=== PATIENT | female | born 1935 | race Caucasian/White ===

== ENCOUNTER 2021-04-23 00:49 | Inpatient (IN) | payer OTHER ==
[~2021-04-23] VITALS: Ht 167.6 cm; Wt 78.9 kg
[2021-04-23 00:51] VITALS: BP 130/84
[2021-04-23] MEDS ORDERED: TYLENOL325 M1 PO (00:51)
[2021-04-23] MEDS ORDERED: ALLOPURINOL 10100 M3 PO (00:51)
[2021-04-23] MEDS ORDERED: NORVASC10 MG PO (00:52)
[2021-04-23] MEDS ORDERED: VITAMIN B-121000 MC2 SUBLING (00:52)
[2021-04-23] MEDS ORDERED: PULMICORT0.5 MG/21 INH (00:52)
[2021-04-23] MEDS ORDERED: LISINOPRIL20 MG PO (00:53)
[2021-04-23] MEDS ORDERED: ENOXAPARIN40 MG/0.1 SUBQ (00:53)
[2021-04-23] MEDS ORDERED: LEVO-T100 MCG PO (00:53)
[2021-04-23] MEDS ORDERED: MAGNESIUM250 M1 PO (00:54)
[2021-04-23] MEDS ORDERED: TOPROL XL25 MG PO (00:54)
[2021-04-23] MEDS ORDERED: SENNA8.8 MG/5 M PO (00:55)
[2021-04-23] MEDS ORDERED: PROTONIX40 M2 PO (00:55)
[2021-04-23] MEDS ORDERED: VENTOLIN HFA 1818 GM INH (00:55)
[2021-04-23 01:53] LABS: ABSOLUTE BASOPHILS 0.1 thou/uL (0.0-0.2); ABSOLUTE EOSINOPHILS 0.3 thou/uL (0.0-0.7); ABSOLUTE LYMPHOCYTES 1.3 thou/uL (0.8-5.3); ABSOLUTE MONOCYTES 0.9 thou/uL (0.0-1.2); ABSOLUTE NEUTROPHILS 8.4 thou/uL (1.6-8.1); BASOPHILS 0.6 %; EOSINOPHILS 2.3 %; HEMATOCRIT 25.1 % (37.0-47.0); HEMOGLOBIN 8.6 gm/dL (12.0-15.0); LYMPHOCYTES 12.1 %; MCH 31.9 pg (26.0-34.0); MCHC 34.1 g/dL (28.0-37.0); MCV 93.5 fL (80.0-100.0); MONOCYTES 8.5 %; MPV 5.9 fl. (7.2-11.1); NUCLEATED RBCS 0 /100WBC; PLATELET COUNT* 413 thou/uL (150-400); POLYS 76.5 %; RBC 2.69 mil/uL (4.20-5.00); RDW-CV 15.7 % (10.5-14.5)
[2021-04-23 02:00] LABS: CALCIUM 9.6 mg/dL (8.5-10.1); CREATININE 1.3 mg/dL (0.6-1.3); POTASSIUM 4.5 mmol/L (3.5-5.1)
[2021-04-23 02:05] LABS: ALBUMIN 2.7 g/dL (3.4-5.0); TOTAL BILIRUBIN 0.6 mg/dL (<0.1-1.0)
[2021-04-23 03:36] LABS: URINE BILIRUBIN NEGATIVE (Negative); URINE BLOOD 1+ (Negative); URINE CLARITY SL CLOUDY; URINE COLOR YELLOW; URINE GLUCOSE-RANDOM NEGATIVE (Negative); URINE KETONES NEGATIVE (Negative); URINE PROTEIN 1+ (Negative); URINE UROBILINOGEN 0.2 E.U./dl (0.2-1.0)
[2021-04-23 03:39] LABS: URINE LEUKOCYTES-REFLEX 3+ (Negative); URINE NITRITE-REFLEX POSITIVE (Negative)
[2021-04-23 03:43] LABS: SQUAMOUS 0-3 Few /LPF (0-3); URINE WBC-REFLEX >25 Many /HPF (0-5); WBC CLUMPS Few (None Seen)
[2021-04-23 03:44] LABS: BACTERIA-REFLEX >30 Many /HPF (None Seen); CASTS None Seen /LPF (None Seen); MUCUS 4-6 Moderate strn/LPF (None Seen)
[2021-04-23 03:46] LABS: TRIPLE PHOSPHATE CRYSTALS 0-3 Few /LPF (None Seen)
[2021-04-23 07:52] VITALS: BP 125/59
[2021-04-23 08:15] VITALS: BP 123/46
--- NOTE | 2021-04-23 10:59 | EKG ---
[place] [address] ELECTROCARDIOGRAM REPORT Name: MICBLAKE Carrillo Room: [address]R.#: [id number] Admission: 04/23/21 Attend Phys: George Peace, Discharge: Date of : [birth year] Date of Service: 04/23/21 0148 Report #: [id number] THIS REPORT FOR: //name// [facility] ED Test Date: 2021-04-23 Test Time: 01:48:56 Pat Name: BLAKE HAILE Department: Room: [facility] Gender: F Cook Starch: [place] : 1935 Requested By: Delilah Joy Order Number: [id number] MD: Edmundo Mathis Measurements Intervals [place] Rate: 81 P: 0 [place]: 63 QRS: -39 QRSD: 119 T: -5 QT: 405 QTc: 470 Interpretive Statements Sinus rhythm with PACs First-degree AV block Nonspecific IVCD with LAD Inferior infarct, old possible R wave progression V2 to V3 of uncertain cause No previous ECG available for comparison Electronically Signed On 04-23-2021 10:59:12 CDT by Edmundo Mathis [email or web address] <ELECTRONICALLY SIGNED> By: Edmundo Mathis MD, [facility] 04/23/21 1059 7 0148 Edmundo Mathis MD, [facility] /EPI
--- NOTE | 2021-04-23 13:25 | NUR ---
REFERRAL PACKET FAXED TO [facility] ([phone]) [facility] ([phone]) [facility] CONTACT LIAISON. AWAITING APPROVAL. CM LUIS MENARD TO FOLLOW FOR SAFE D/C PLANNING.
--- NOTE | 2021-04-23 15:09 | NUR ---
WOUND NURSE: PATIENT ADDRESSED REGARDING COCCYGEAL WOUND. PRESENTS A 0.8 X 0.8 X 0.2 CM LESION CONTAINING PALE YELLOWISH TISSUE IN THE WOUND BED AND MINIMAL AMOUNT OF SEROUUS DRAINAGE. CLEANSED WITH SOAP AND WATER, RINSED, THEN PATTED DRY. APPLIED SKIN PREP TO INTACT PERIWOUND TISSUE. APPLIED EXUDERM SATIN (CUT TO FIT) OVER THE WOUND BED, THEN SECURED IN PLACE USING SURESITE TRANSPARENT DRESSING. PATIENT WAS POSITIONED ONTO HER LEFT SIDE. PATIENT IS NOT TEACHEABLE.
[2021-04-23 16:00] VITALS: BP 121/55
--- NOTE | 2021-04-23 16:14 | NUR ---
PT VERBALIZING PAIN. DR. BROWN NOTIFIED. PT HAD A KNEE REPLACEMENT 2 WEEKS AGO. TELEPHONE ORDER FOR SLOAN 5/325 Q 4 HOURS FOR PAIN GIVEN BY DR. RBOWN.
--- NOTE | 2021-04-23 18:40 | NUR ---
PT RESTING IN BED AT THIS TIME. WOUND CARE NURSE IN TO SEE PATIENT. ASSUMED CARE OF PT AT 1500 TODAY. REPORT RECEIVED. PT RECEIVED PAIN MED X 1 FOR LEFT KNEE PAIN. CARLIN REMAIN IN PLACE. FALL PRECAUTIONS IN PLACE. POOR PO INTAKE FOR DINNER. WILL CONTINUE TO MONITOR.
[2021-04-23 20:30] VITALS: BP 146/51
--- NOTE | 2021-04-24 07:36 | NUR ---
PATIENT SLEPT MOST OF THE NIGHT. IV REMAINS SALINE LOCKED. PURWICK WAS PLACED FOR INCONTINENCE. PATIENT HAD NO COMPLAINTS OF PAIN. WILL CONTINUE TO MONITOR.
[2021-04-24 07:58] VITALS: BP 141/62
[2021-04-24 09:28] LABS: HEMATOCRIT 23.3 % (37.0-47.0); HEMOGLOBIN 8.1 gm/dL (12.0-15.0); MCH 32.4 pg (26.0-34.0); MCHC 34.9 g/dL (28.0-37.0); MCV 92.9 fL (80.0-100.0); MPV 6.3 fl. (7.2-11.1); RBC 2.51 mil/uL (4.20-5.00); RDW-CV 15.4 % (10.5-14.5); WBC 6.8 thou/uL (4.0-11.0)
[2021-04-24 09:33] LABS: CALCIUM 9.2 mg/dL (8.5-10.1); POTASSIUM 4.1 mmol/L (3.5-5.1)
[2021-04-24 16:10] VITALS: BP 143/61
--- NOTE | 2021-04-24 18:44 | NUR ---
PATIENT IS ORIENTED TO SELF, PLEASANT AND COOPERATIVE WITH CARES. PATIENT HAS SAT UP IN RECLINER MOST OF SHIFT AND HAS DENIED ANY PAIN UNTIL APPROX. 1800 WHEN SHE C/O LEFT KNEE AND BUTTOCK PAIN AFTER BEING ASSISTED BACK TO BED BY NURSING STAFF. PRN PAIN MEDICATION ADMINISTERED AND PATIENT IS CURRENTLY LYING IN BED WITH EYES CLOSED, APPEARS TO BE SLEEPING WITH RESPIRATIONS EVEN AND UNLABORED, NO DISTRESS NOTED. BED ALARM ON FOR PATIENT'S SAFETY; CALL LIGHT AND FREQUENTLY USED ITEMS WITHIN REACH.
[2021-04-24 21:30] VITALS: BP 126/64
--- NOTE | 2021-04-25 07:46 | NUR ---
PATIENT SLEPT MOST OF THE NIGHT. PATIENT HAD NO COMPLAINTS OF PAIN. DRESSING TO LEFT KNEE REMAINS INTACT. PURWICK REMAINS IN PLACE. WILL CONTINUE TO MONITOR.
[2021-04-25 08:20] VITALS: BP 158/56
[2021-04-25 08:27] LABS: HEMATOCRIT 23.2 % (37.0-47.0); HEMOGLOBIN 8.1 gm/dL (12.0-15.0); MCH 32.5 pg (26.0-34.0); MCHC 34.8 g/dL (28.0-37.0); MCV 93.2 fL (80.0-100.0); MPV 6.1 fl. (7.2-11.1); RBC 2.49 mil/uL (4.20-5.00); RDW-CV 15.7 % (10.5-14.5); WBC 5.3 thou/uL (4.0-11.0)
[2021-04-25 08:51] LABS: CALCIUM 9.3 mg/dL (8.5-10.1); CREATININE 0.9 mg/dL (0.6-1.3)
[2021-04-25 16:00] VITALS: BP 130/54
--- NOTE | 2021-04-25 17:01 | NUR ---
PT REMAINED ALERT AND ORIENTED. DRESSING CHANGED. HOME MEDS RESTARTED. FALL RISK PRECAUTIONS IN PLACE. HOURLY ROUNDING COMPLETED.
[2021-04-25 20:17] VITALS: BP 133/49
[2021-04-26 04:24] LABS: HEMATOCRIT 22.9 % (37.0-47.0); HEMOGLOBIN 7.9 gm/dL (12.0-15.0); MCH 32.3 pg (26.0-34.0); MCHC 34.7 g/dL (28.0-37.0); MCV 93.2 fL (80.0-100.0); MPV 6.4 fl. (7.2-11.1); RBC 2.46 mil/uL (4.20-5.00); RDW-CV 15.6 % (10.5-14.5); WBC 5.8 thou/uL (4.0-11.0)
[2021-04-26 04:34] LABS: CALCIUM 9.3 mg/dL (8.5-10.1); CREATININE 0.8 mg/dL (0.6-1.3)
--- NOTE | 2021-04-26 06:15 | NUR ---
PATIENT SLEPT MOST OF THE NIGHT. PATIENT HAD NO COMPLAINTS OF PAIN. PATIENT COULD POSSIBLY DC BACK TO [facility]. WILL CONTINUE TO MONITOR.
[2021-04-26 08:00] VITALS: BP 139/60
--- NOTE | 2021-04-26 14:03 | NUR ---
Insurance auth receive, planned dc back to [facility] tomorrow. Updated Tamiko at [facility].
--- NOTE | 2021-04-26 14:16 | NUR ---
Auth recieved for [facility]. Renato ID: [id number]. Auth will be visible to [facility] within 1-2 hours. Auth good x3 days. [facility] to fax continued stay review to [phone]. SW notified.
[2021-04-26 16:18] VITALS: BP 135/54
[2021-04-26 20:56] VITALS: BP 120/36
--- NOTE | 2021-04-27 04:53 | NUR ---
PATIENT HAS REMAINED ALERT AND ORIENTED X 1-2. RESTING QUIETLY ON HOURLY ROUNDS. TURNED Q2H. HAS NOT REQUIRED PAIN MEDICATION. DRESSINGS PRESENT TO LEFT KNEE AND SACRUM. VITAL SIGNS STABLE WITH TEMPERATURE AT 99.3. FALL PRECAUTIONS IN PLACE. POSSIBLE RETURN TO [facility] TODAY PER CM NOTES. CONTINUE TO MONITOR.
[2021-04-27 07:30] VITALS: BP 151/70
[2021-04-27 08:27] VITALS: BP 151/70
[2021-04-27] MEDS ORDERED: MACROBID 100 M100 MG PO (09:21)
[2021-04-27] MEDS ORDERED: HYDROCODON-ACE1 EAC7 PO (09:21)
--- NOTE | 2021-04-27 10:25 | NUR ---
[facility]. Faxed dc orders. Chart copied. Nurse report number is [phone]. Updated Pt's dtr, dtr to bring Pt's clothing prior to dc. Facility to fruit picker between 1-130pm.
--- NOTE | 2021-04-27 10:36 | NUR ---
WOUND NURSE: PATIENT SEEN FOR WOUND ASSESSMENT ON COCCYX. NOW MEASURES 0.5 X 0.6 X 0.1 CM. THIS IS AN IMPROVEMENT. PRESENTS WITH PALE PINK NONGRANULATING TISSUE IN THE WOUND BED. MINIMAL AMOUNT OF SEROUS DRAINAGE. SLIGHT PERIWOUND IRRITATION. REMOVED AND REAPPLIED OLD DRESSING. STAFF NURSE PICTURED THE WOUND.
[2021-04-27] MEDS ORDERED: TYLENOL325 M1 PO (12:11)
--- NOTE | 2021-04-27 12:46 | NUR ---
CHART COPIED. PT BELONGINGS GATHERED. REPORT CALLED TO FACILITY. IV REMOVED. PT LEFT VIA WHEELCHAIR WITH NURSING STAFF TO [facility]. FALL RISK PRECAUTIONS IN PLACE. WOUND PICS TAKEN. HOURLY ROUNDING COMPLETED.
== END 2021-04-27 13:58 | DRG 690 ==
LOC: M.ERS 00:49 → M.ORTHSURG 04:07 → M.TBA-ER 04:07 → M.ORTHSURG 08:05
PROVIDERS: Emergency Medicine; Family Medicine; Internal Medicine; ADMIT Internal Medicine; ATTEND Internal Medicine
DX: N30.01 Acute cystitis with hematuria (principal); E44.1 Mild protein-calorie malnutrition; I25.10 Atherosclerotic heart disease of native coronary artery without angina pectoris; I10 Essential (primary) hypertension; J45.909 Unspecified asthma, uncomplicated; M54.5 Low back pain; N28.89 Other specified disorders of kidney and ureter; F03.90 Unspecified dementia, unspecified severity, without behavioral disturbance, psychotic disturbance, mood disturbance, and anxiety; B96.4 Proteus (mirabilis) (morganii) as the cause of diseases classified elsewhere; Z20.822 Contact with and (suspected) exposure to COVID-19; Z96.652 Presence of left artificial knee joint; Z90.711 Acquired absence of uterus with remaining cervical stump; Z68.28 Body mass index [BMI] 28.0-28.9, adult; Z90.49 Acquired absence of other specified parts of digestive tract; Z79.899 Other long term (current) drug therapy

== ENCOUNTER 2021-06-06 14:02 | Emergency (ER) | payer OTHER ==
[~2021-06-06] VITALS: Ht 157.5 cm; Wt 72.6 kg
[~2021-06-06 14:02] MED LIST: ALLOPURINOL 10100 M3 PO; ENOXAPARIN40 MG/0.1 SUBQ; HYDROCODON-ACE1 EAC7 PO; LEVO-T100 MCG PO; LEVOFLOXACIN500 MG PO; LISINOPRIL20 MG PO; MACROBID 100 M100 MG PO; MAGNESIUM250 M1 PO; NORVASC10 MG PO; PROTONIX40 M2 PO; PULMICORT0.5 MG/21 INH; SENNA8.8 MG/5 M PO; TOPROL XL25 MG PO; TYLENOL325 M1 PO; VENTOLIN HFA 1818 GM INH; VITAMIN B-121000 MC2 SUBLING
[2021-06-06 14:31] LABS: URINE BILIRUBIN NEGATIVE (Negative); URINE BLOOD 2+ (Negative); URINE COLOR YELLOW; URINE GLUCOSE-RANDOM NEGATIVE (Negative); URINE KETONES 1+ (Negative); URINE NITRITE-REFLEX NEGATIVE (Negative); URINE PROTEIN 3+ (Negative); URINE SPECIFIC GRAVITY 1.025 (1.005-1.030); URINE UROBILINOGEN 0.2 E.U./dl (0.2-1.0)
[2021-06-06 14:34] LABS: ABSOLUTE BASOPHILS 0.1 thou/uL (0.0-0.2); ABSOLUTE EOSINOPHILS 0.1 thou/uL (0.0-0.7); ABSOLUTE LYMPHOCYTES 1.1 thou/uL (0.8-5.3); ABSOLUTE MONOCYTES 0.8 thou/uL (0.0-1.2); BASOPHILS 1.1 %; EOSINOPHILS 2.1 %; HEMATOCRIT 30.6 % (37.0-47.0); HEMOGLOBIN 9.9 gm/dL (12.0-15.0); LYMPHOCYTES 15.3 %; MCH 30.7 pg (26.0-34.0); MCHC 32.6 g/dL (28.0-37.0); MCV 94.2 fL (80.0-100.0); MONOCYTES 11.8 %; MPV 6.8 fl. (7.2-11.1); NUCLEATED RBCS 0 /100WBC; PLATELET COUNT* 364 thou/uL (150-400); POLYS 69.7 %; RBC 3.24 mil/uL (4.20-5.00); RDW-CV 14.3 % (10.5-14.5); WBC 7.2 thou/uL (4.0-11.0)
[2021-06-06] MEDS ORDERED: ELIQUIS5 MG PO (14:35)
[2021-06-06] MEDS ORDERED: GLYCOLAX119 GM PO (14:36)
[2021-06-06 14:38] LABS: URINE LEUKOCYTES-REFLEX 3+ (Negative)
[2021-06-06] MEDS ORDERED: MILK OF MA400 MG/5 M PO (14:38)
[2021-06-06 14:39] LABS: CALCIUM 9.7 mg/dL (8.5-10.1); CREATININE 1.3 mg/dL (0.6-1.3); POTASSIUM 4.3 mmol/L (3.5-5.1)
[2021-06-06] MEDS ORDERED: MULTIPLE VITAM1 EAC2 PO (14:39)
[2021-06-06] MEDS ORDERED: FLORASTOR250 MG PO (14:40)
[2021-06-06] MEDS ORDERED: CVS SENNA PLUS1 EACH PO (14:40)
[2021-06-06 14:43] LABS: URINE CLARITY CLOUDY
[2021-06-06 14:44] LABS: BACTERIA-REFLEX >30 Many /HPF (None Seen); CASTS None Seen /LPF (None Seen); CRYSTALS None Seen /LPF (None Seen); SQUAMOUS 0-3 Few /LPF (0-3); URINE RBC >20 Many /HPF (0-2); URINE WBC-REFLEX >25 Many /HPF (0-5)
[2021-06-06 14:52] LABS: ALBUMIN 2.7 g/dL (3.4-5.0); CK-MB MASS 1.2 ng/mL (<0.5-3.6); TOTAL BILIRUBIN 0.3 mg/dL (<0.1-1.0); TOTAL PROTEIN 6.5 g/dL (6.4-8.2)
[2021-06-06] MEDS ORDERED: ROCEPHIN 11 GM/1001 IM (15:24)
[2021-06-06 17:35] VITALS: BP 118/68
--- NOTE | 2021-06-07 10:04 | EKG ---
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 : 1935 Requested By: Wilver Pearl Order Number: [id number] MD: Otoniel Perez Measurements Intervals [place] Rate: 88 P: 0 RI: 196 QRS: -35 QRSD: 103 T: -18 QT: 419 QTc: 507 Interpretive Statements Sinus rhythm Ventricular premature complex Abnormal R-wave progression, late transition Inferior infarct, old Prolonged QT interval Compared to ECG 04/23/2021 01:48:56 Ventricular premature complex(es) now present Prolonged QT interval now present Myocardial infarct finding still present Electronically Signed On 06-07-2021 10:04:42 CDT by Otoniel Perez [email or web address] <ELECTRONICALLY SIGNED> By: Otoniel Perez MD, [facility] 06/07/21 1004 1428 1428 Otoniel Perez MD, [facility] /EPI
== END 2021-06-06 17:39 | disposition home or self-care (01) ==
LOC: M.ERS 14:02
PROVIDERS: Family Medicine
DX: R41.82 Altered mental status, unspecified (principal); N39.0 Urinary tract infection, site not specified; J45.909 Unspecified asthma, uncomplicated; I10 Essential (primary) hypertension; I25.10 Atherosclerotic heart disease of native coronary artery without angina pectoris; G47.30 Sleep apnea, unspecified; E66.01 Morbid (severe) obesity due to excess calories; Z90.711 Acquired absence of uterus with remaining cervical stump; Z79.899 Other long term (current) drug therapy; Z68.29 Body mass index [BMI] 29.0-29.9, adult

== ENCOUNTER 2021-11-18 18:19 | Inpatient (IN) | payer OTHER ==
[~2021-11-18] VITALS: Ht 165.1 cm; Wt 62.0 kg
--- NOTE | ~2021-11-18 | EMS ---
[facility] [address] [place] [address] EMS Patient Care Report Name: BLAKE HAILE Room: [facility]#: [id number] Admission: 11/18/21 Attend Phys: Discharge: Date of : [birth year] Report #: [id number] THIS REPORT FOR: //name// Report Transmitted: 11/18/2021 18:17 EMS Care Summary [facility] [place] Incident [id number] @ 11/18/2021 17:40 Incident Location [address] [place] [address] Patient Ree Hill Female, 86 Years 1935 Patient Address [address] [address] Patient History Hypertension (HTN),Atrial Fibrillation,Anemia, unspecified,Other,Urinary tract infection, site not specified,Chronic Kidney Disease, Patient Allergies No known allergies, Patient Medications Eliquis, Chief Complaint Vaginal Bleeding Disposition Transported No Lights/[place] Dispatch Reason Hemorrhage/Laceration Transported To [facility] Narrative [facility] DISPATCHED EMERGENT TO [facility] FOR REPORT OF VAGINAL BLEEDING AND BLOOD IN URINE. ARRIVED ON SCENE AND MADE CONTACT WITH NURSING STAFF. PT IS 86YOF WHO HAS A GEORGE CATHETER AND WAS FOUND WITH BLOOD IN HER [facility] [address] [place] [address] EMS Patient Care Report Name: BLAKE HAILE Room: [facility]#: [id number] Admission: 11/18/21 Attend Phys: Discharge: Date of : [birth year] Report #: [id number] URINE AROUND NOON. PT WAS MONITORED AND WAS EXPERIENCING TENDERNESS ON PALPATION AND MILD BURNING WITH URINATION. PT'S CATHETER WAS CHANGED AROUND 1730 AT WHICH POINT STAFF NOTICED SUBSTANTIALLY MORE BLOOD AND LOOSE BLOOD CLOTS. PT PHYSICIAN CONTACTED AND ORDERED PT TO THE ER. PT IS COVID POSITIVE. MADE PT CONTACT. PT IS CURRENTLY ALERT AND ORIENTED BUT HAS SOME CONFUSION AT BASELINE. PT DENIES ANY PAIN OR DISCOMFORT. PT DENIES ANY BLEEDING RECENTLY. PT HAS HISTORY OF KIDNEY FAILURE AND UTI. PT CATHETER BAG HAS APPROXIMATELY 150ML OF BLOOD DILUTED URINE. PT TRANSFERRED TO EMS COT USING DRAWSHEET AND SECURED WITH SAFETY STRAPS FOR TRANSPORT. PT TAKEN ON COT TO AMBULANCE WHERE COT SECURED IN LOCKING MECHANISM. TRANSPORT INITIATED WITH PT RESTING COMFORTABLY. PT IS CALM AND APPROPRIATE BUT HAS SLIGHT CONFUSION. RADIO REPORT CALLED TO RECEIVING FACILITY. ARRIVED AT DESTINATION WITH NO ACUTE CHANCE IN PT COMPLAINT OR CONDITION. PT TAKEN INTO ED ON COT AND TRANSFERRED TO ED BED USING A DRAWSHEET. BEDSIDE REPORT GIVEN TO RN WITH CARE TRANSFERRED. UNIT CLEANED AND RETURNED TO SERVICE WITHOUT INCIDENT. Initial Vitals @18:05SpO2: 99, @18:12SpO2: 97, @18:05P: 83,R: 16,BP: 138/64, @18:12P: 91,R: 17,BP: 144/72, @18:05GCS: 14, @18:12GCS: 14, Assessments @17:49MENTAL:SKIN:HEENT:LUNG SOUNDS:ABDOMEN:PELVIS//GI:EXTREMITIES:PULSE:NEURO: Impression Vaginal Hemorrhage Timeline 12:00,Call Received 17:39,Dispatch Notified 17:39,Psap Call 17:40,Dispatched 17:40,En Route 17:44,On Scene 17:49,At Patient 18:05,Depart Scene 18:05,BP: / M,PULSE: ,RR: R,SPO2: 99 Ox,ETCO2: ,BG: ,PAIN: ,GCS: , 18:05,BP: 138/64 M,PULSE: 83,RR: 16 R,SPO2: Ox,ETCO2: ,BG: ,PAIN: ,GCS: , 18:05,BP: / M,PULSE: ,RR: R,SPO2: Ox,ETCO2: ,BG: ,PAIN: ,GCS: 14, 18:12,BP: / M,PULSE: ,RR: R,SPO2: 97 Ox,ETCO2: ,BG: ,PAIN: ,GCS: , 18:12,BP: 144/72 M,PULSE: 91,RR: 17 R,SPO2: Ox,ETCO2: ,BG: ,PAIN: ,GCS: , [place] [address] EMS Patient Care Report Name: BLAKE HAILE Room: [facility]#: [id number] Admission: 11/18/21 Attend Phys: Discharge: Date of : [birth year] Report #: [id number] 18:12,BP: / M,PULSE: ,RR: R,SPO2: Ox,ETCO2: ,BG: ,PAIN: ,GCS: 14, 18:16,At Destination 18:33,Call Closed Disclaimer v1.1 Copyright 2021 [employer] This EMS Care Summary contains data elements from the applicable legal record (which may be displayed differently). It is designed to provide pertinent information for the following purposes: continuity of care, clinical quality, and state data reporting. The complete legal record is available to ED staff and administrators of the receiving hospital in [employer]'s Patient Tracker. All data is provided "as is."
[~2021-11-18 18:19] MED LIST changes: +ALBUTEROL2.5 MG/31 INH; +CVS SENNA PLUS1 EACH PO; +ELIQUIS5 MG PO; +FLORASTOR250 MG PO; +GLYCOLAX119 GM PO; +MILK OF MA400 MG/5 M PO; +MULTIPLE VITAM1 EAC2 PO; +ROCEPHIN 11 GM/1001 IM; -VENTOLIN HFA 1818 GM INH
[2021-11-18 18:23] VITALS: BP 188/65
[2021-11-18 19:02] LABS: ABSOLUTE EOSINOPHILS 0.3 thou/uL (0.0-0.7); ABSOLUTE LYMPHOCYTES 3.3 thou/uL (0.8-5.3); ABSOLUTE MONOCYTES 0.7 thou/uL (0.0-1.2); ABSOLUTE NEUTROPHILS 2.5 thou/uL (1.6-8.1); BASOPHILS 0.3 %; EOSINOPHILS 4.9 %; HEMATOCRIT 32.6 % (37.0-47.0); MCHC 33.7 g/dL (28.0-37.0); MCV 95.1 fL (80.0-100.0); MONOCYTES 10.2 %; MPV 6.5 fl. (7.2-11.1); NUCLEATED RBCS 0 /100WBC; PLATELET COUNT* 267 thou/uL (150-400); POLYS 36.6 %; RBC 3.43 mil/uL (4.20-5.00); RDW-CV 13.9 % (10.5-14.5); WBC 6.8 thou/uL (4.0-11.0)
[2021-11-18 19:08] LABS: CALCIUM 9.8 mg/dL (8.5-10.1); CREATININE 1.2 mg/dL (0.6-1.3); POTASSIUM 4.7 mmol/L (3.5-5.1)
[2021-11-18 19:11] LABS: URINE BILIRUBIN NEGATIVE (Negative); URINE BLOOD 3+ (Negative); URINE CLARITY CLOUDY; URINE COLOR RED; URINE GLUCOSE-RANDOM NEGATIVE (Negative); URINE KETONES NEGATIVE (Negative); URINE LEUKOCYTES-REFLEX TRACE (Negative); URINE PROTEIN 3+ (Negative); URINE SPECIFIC GRAVITY 1.025 (1.005-1.030); URINE UROBILINOGEN 0.2 E.U./dl (0.2-1.0)
[2021-11-18 19:12] LABS: SQUAMOUS 0-3 Few /LPF (0-3); URINE NITRITE-REFLEX POSITIVE (Negative)
[2021-11-18 19:13] LABS: ALBUMIN 3.1 g/dL (3.4-5.0); TOTAL BILIRUBIN 0.3 mg/dL (<0.1-1.0); TOTAL PROTEIN 7.1 g/dL (6.4-8.2)
[2021-11-18 19:13] LABS: CASTS None Seen /LPF (None Seen); CRYSTALS None Seen /LPF (None Seen); URINE RBC >20 Many /HPF (0-2); URINE WBC-REFLEX 0-5 Rare /HPF (0-5)
[2021-11-18] MEDS ORDERED: CEPHALEXIN500 MG PO (21:22)
[2021-11-19 05:10] VITALS: BP 121/47
[2021-11-19 09:00] VITALS: BP 130/50
[2021-11-19 09:33] LABS: ABSOLUTE EOSINOPHILS 0.2 thou/uL (0.0-0.7); ABSOLUTE LYMPHOCYTES 2.1 thou/uL (0.8-5.3); ABSOLUTE MONOCYTES 0.4 thou/uL (0.0-1.2); ABSOLUTE NEUTROPHILS 3.7 thou/uL (1.6-8.1); BASOPHILS 0.5 %; EOSINOPHILS 3.3 %; HEMATOCRIT 29.4 % (37.0-47.0); HEMOGLOBIN 9.7 gm/dL (12.0-15.0); LYMPHOCYTES 32.8 %; MCH 31.3 pg (26.0-34.0); MCHC 32.9 g/dL (28.0-37.0); MCV 95.4 fL (80.0-100.0); MONOCYTES 5.8 %; MPV 6.5 fl. (7.2-11.1); NUCLEATED RBCS 0 /100WBC; PLATELET COUNT* 268 thou/uL (150-400); POLYS 57.6 %; RBC 3.09 mil/uL (4.20-5.00); RDW-CV 13.5 % (10.5-14.5); WBC 6.4 thou/uL (4.0-11.0)
[2021-11-19 09:46] LABS: CALCIUM 9.2 mg/dL (8.5-10.1); CREATININE 1.2 mg/dL (0.6-1.3); POTASSIUM 4.2 mmol/L (3.5-5.1)
--- NOTE | 2021-11-19 10:10 | NUR ---
Pt is admitted on 11/18/21 with UTI, Hematuria, and Renal Cyst. Pt tested positive for Covid 3 days ago. Called pt's son - Norma at: [phone] to complete assessment. Pt is a custodial resident of [facility]. Son reports she has been there since 05/19. Son reports pt is non ambulatory and if she does get out of bed - utilizes a wheelchair. Pt does have a CPAP machine. Son confirms dicharge plan of returning to [facility]. CM to continue to follow for discharge planning.
[2021-11-19 13:34] VITALS: BP 107/52
[2021-11-19 17:00] VITALS: BP 118/77
[2021-11-19 22:36] VITALS: BP 131/56
[2021-11-20] VITALS: BP 128/62
[2021-11-20 04:00] VITALS: BP 163/67
[2021-11-20 05:48] LABS: HEMATOCRIT 29.7 % (37.0-47.0); HEMOGLOBIN 9.9 gm/dL (12.0-15.0); MCH 31.7 pg (26.0-34.0); MCHC 33.3 g/dL (28.0-37.0); MPV 6.7 fl. (7.2-11.1); RBC 3.12 mil/uL (4.20-5.00); RDW-CV 13.1 % (10.5-14.5); WBC 8.2 thou/uL (4.0-11.0)
[2021-11-20 06:21] LABS: ALBUMIN 2.7 g/dL (3.4-5.0); CALCIUM 9.2 mg/dL (8.5-10.1); CREATININE 0.8 mg/dL (0.6-1.3); POTASSIUM 4.2 mmol/L (3.5-5.1); TOTAL BILIRUBIN 0.3 mg/dL (<0.1-1.0); TOTAL PROTEIN 6.5 g/dL (6.4-8.2)
[2021-11-20 08:30] VITALS: BP 132/71
[2021-11-20 12:00] VITALS: BP 120/67
[2021-11-20 16:00] VITALS: BP 123/57
--- NOTE | 2021-11-20 19:46 | NUR ---
1800 CBI INFUSED AT A SLOW RATE WITH A REIDIC INCREASE, WHEN BLOOD CLOTD NOTED. FOR SHIFT A TOTAL OF 1000 ML CBI INFUSED AND 1600 OF REDISH PINK WITH A FEW CLOTS EMPTIED OUT OF THE GEORGE AT THE END OF SHIFT. THE SUM AMOUT OF OUTPUT IS 600 ML.
[2021-11-20 20:20] VITALS: BP 116/43
[2021-11-21 00:28] VITALS: BP 117/51
[2021-11-21 04:14] VITALS: BP 144/68
[2021-11-21 05:21] LABS: HEMATOCRIT 25.6 % (37.0-47.0); HEMOGLOBIN 8.6 gm/dL (12.0-15.0); MCH 31.8 pg (26.0-34.0); MCHC 33.7 g/dL (28.0-37.0); MCV 94.5 fL (80.0-100.0); MPV 6.6 fl. (7.2-11.1); RBC 2.71 mil/uL (4.20-5.00); RDW-CV 13.1 % (10.5-14.5); WBC 5.2 thou/uL (4.0-11.0)
[2021-11-21 06:21] LABS: CALCIUM 9.3 mg/dL (8.5-10.1); CREATININE 0.9 mg/dL (0.6-1.3); MAGNESIUM 1.8 mg/dL (1.8-2.4); POTASSIUM 4.2 mmol/L (3.5-5.1)
[2021-11-21 09:30] VITALS: BP 126/65
[2021-11-21 12:03] VITALS: BP 102/55
[2021-11-21 16:00] VITALS: BP 119/52
[2021-11-21 19:55] VITALS: BP 126/54
[2021-11-22 00:37] VITALS: BP 91/50
[2021-11-22 03:57] LABS: HEMATOCRIT 23.1 % (37.0-47.0); HEMOGLOBIN 7.8 gm/dL (12.0-15.0); MCH 31.6 pg (26.0-34.0); MCHC 33.6 g/dL (28.0-37.0); MCV 94.2 fL (80.0-100.0); MPV 6.6 fl. (7.2-11.1); RBC 2.45 mil/uL (4.20-5.00); RDW-CV 13.4 % (10.5-14.5); WBC 5.3 thou/uL (4.0-11.0)
[2021-11-22 04:00] VITALS: BP 125/60
--- NOTE | 2021-11-22 04:02 | NUR ---
PT A&OX3, FORGETFUL. VSS ON ROOM AIR, CPAP WHILE SLEEPING. MED/SURG STATUS. UP WITH ASSIST. URINARY CATHETER IN PLACE. REPOSITIONED Q2H. IV SALINE LOCKED. PT SLEEP WELL, WILL CONTINUE TO MONITOR.
[2021-11-22 04:33] LABS: ALBUMIN 2.3 g/dL (3.4-5.0); CALCIUM 8.9 mg/dL (8.5-10.1); CREATININE 1.1 mg/dL (0.6-1.3); MAGNESIUM 2.2 mg/dL (1.8-2.4); POTASSIUM 4.3 mmol/L (3.5-5.1); TOTAL BILIRUBIN 0.2 mg/dL (<0.1-1.0); TOTAL PROTEIN 5.6 g/dL (6.4-8.2)
[2021-11-22 08:30] VITALS: BP 123/53
--- NOTE | 2021-11-22 09:00 | NUR ---
GEORGE REMOVED, NO HEMATURIA NOTED.
[2021-11-22 12:00] VITALS: BP 113/50
--- NOTE | 2021-11-22 15:44 | NUR ---
CM FOLLOWUP PT NOT MED CLEAR YET. UPON MED CLEARANCE, PT WILL RETURN TO [facility] FOR LTC. CM TO FOLLOW.
[2021-11-22 16:00] VITALS: BP 115/47
--- NOTE | 2021-11-22 18:29 | NUR ---
PT IS ALERT, FORGETFUL, NOT ORIENTED TO YEAR. PT HAS HAD MULTIPLE LOOSE BMS. PT IS INCONTINENT OF BOTH BOWEL AND BLADDER. NO BLOOD IN STOOL, ALL MEDIUM-BROWN. PLAN D/C TOMORROW IF LABS ARE BETTER (HGB) PER DR ROMO
[2021-11-22 20:00] VITALS: BP 120/72
[2021-11-23] VITALS: BP 103/61
[2021-11-23 04:00] VITALS: BP 142/63
[2021-11-23 04:25] LABS: HEMATOCRIT 25.4 % (37.0-47.0); HEMOGLOBIN 8.6 gm/dL (12.0-15.0); MCH 31.9 pg (26.0-34.0); MPV 6.7 fl. (7.2-11.1); RBC 2.71 mil/uL (4.20-5.00); RDW-CV 13.6 % (10.5-14.5); WBC 5.3 thou/uL (4.0-11.0)
[2021-11-23 04:42] LABS: CALCIUM 9.4 mg/dL (8.5-10.1); CREATININE 1.1 mg/dL (0.6-1.3); MAGNESIUM 2.2 mg/dL (1.8-2.4); POTASSIUM 4.1 mmol/L (3.5-5.1)
--- NOTE | 2021-11-23 06:10 | NUR ---
ASSUMED CARE OF PT AFTER REPORT AT 1930. PT A&OX3-4. FORGETFUL. VSS. PHYSICAL ASSESSMENT COMPLETED AND CHARTED. PT ON RA/CPAP AT HS. PT TRACING SR/1ST DEG/PVC/2ND DEG T2. PT WITH EPISODES OF INCONTINENT BOWEL & BLADDER. PT COMPLAINED OF BOTTOM PAIN-MED GIVEN PER MAR. FALL PRECAUTIONS IN PLACE. CALL LIGHT WITHIN REACH.
[2021-11-23 08:00] VITALS: BP 135/81
[2021-11-23] MEDS ORDERED: MACROBID 100 M100 MG PO (10:18)
[2021-11-23] MEDS ORDERED: HYDROCODON-ACE1 EAC7 PO (10:18)
[2021-11-23 12:09] VITALS: BP 106/45
--- NOTE | 2021-11-23 14:56 | NUR ---
PT DC BACK TO [facility]. IV OUT. PT STABLE UPON DC. HOME CPAP SENT BACK WITH PT. ATTEMPTED TO CALL REPORT TWICE AND DID NOT GET AN ANSWER. WILL CALL AGAIN.
--- NOTE | 2021-11-23 15:32 | NUR ---
WOUND CARE PATIENT SEEN FOR CONSULT TO ASSES SACRAL AREA. INTACT SKIN STAGE 1 PRESSURE ULCER SKIN PROTECTANT APPLIED. PATIENT WAS WET FROM URINE & STOOL. CLEANED WITH WET WIPES AND RESPOITIONED CHUX WERE CHANGED
--- NOTE | 2021-11-23 15:37 | NUR ---
CM FOLLOWUP PT MED CLEAR FOR DC BACK TO LTC AT [facility] [place]. PT TRANSPORTED BACK TO LT BY [facility] ([phone]).
== END 2021-11-23 15:05 | DRG 689 ==
LOC: M.ERS 18:19 → M.TBA-ER 23:08 → M.ORTHSURG 11-19 23:08
PROVIDERS: Physician Assistant; ADMIT Internal Medicine; ATTEND Internal Medicine
PROC: 5A09357 Assistance with Respiratory Ventilation, Less than 24 Consecutive Hours, Continuous Positive Airway Pressure (ICD-10-PCS; principal; 2021-11-21)
DX: N39.0 Urinary tract infection, site not specified (principal); U07.1 COVID-19; G92.8 Other toxic encephalopathy; S37.22XA Contusion of bladder, initial encounter; J45.909 Unspecified asthma, uncomplicated; I10 Essential (primary) hypertension; I25.10 Atherosclerotic heart disease of native coronary artery without angina pectoris; E66.01 Morbid (severe) obesity due to excess calories; N28.1 Cyst of kidney, acquired; R31.0 Gross hematuria; X58.XXXA Exposure to other specified factors, initial encounter; Z90.711 Acquired absence of uterus with remaining cervical stump; Z90.49 Acquired absence of other specified parts of digestive tract; Z68.22 Body mass index [BMI] 22.0-22.9, adult; Z88.1 Allergy status to other antibiotic agents; Y93.89 Activity, other specified; Y92.89 Other specified places as the place of occurrence of the external cause; Y99.8 Other external cause status